=== PATIENT | male | born 2000 | race Two or more races ===

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

== ENCOUNTER 2018-02-16 17:49 | Emergency (ER) | payer MEDICAID ==
--- NOTE | 2018-02-16 18:32 | ER Document Report ---
ED Medical Screen (RME) - General Chief Complaint: Headache Stated Complaint: HEADACHE Time Seen by Provider: 02/16/18 18:19 Notes: 17-year-old male patient who has had headaches off and on for 3 or 4 months, now they are every day for the past 2 weeks. He reports headaches are all over. He has not taken anything for them because he does not want to take medicines. Mother reports that he sleeps all day and night every day and night for the past 3 weeks. He is not been eating, he has had no energy. She reports an 8 pound weight loss. I have greeted and performed a rapid initial assessment of this patient. A comprehensive ED assessment and evaluation of the patient, analysis of test results and completion of the medical decision making process will be conducted by additional ED providers. TRAVEL OUTSIDE OF THE [place] IN LAST 30 DAYS: No - Related Data Allergies/Adverse Reactions: No Known Allergies Allergy (Verified 02/16/18 17:51) Past Medical History - Social History Frequency of alcohol use: None Drug Abuse: None Renal/ Medical History: Denies: Hx Peritoneal Dialysis - Immunizations Immunizations up to date: Yes Hx Diphtheria, Pertussis, Tetanus Vaccination: Yes Physical Exam - Vital signs Vitals: Temp Pulse Resp BP Pulse Ox 98.4 F 64 14 115/70 98 02/16/18 18:03 02/16/18 18:03 02/16/18 18:03 02/16/18 18:03 02/16/18 18:03 Course - Vital Signs Vital signs: Temp Pulse Resp BP Pulse Ox 98.4 F 64 14 115/70 98 02/16/18 18:03 02/16/18 18:03 02/16/18 18:03 02/16/18 18:03 02/16/18 18:03 Doctor's Discharge - Discharge Referrals: HAILY LOMELI MD [Primary Care Provider] - Follow up as needed
[2018-02-16 19:26] LABS: ABSOLUTE BASOPHILS # (AUTO) 0.1 10^3/uL (0.0-0.2); ABSOLUTE EOSINOPHILS # (AUTO) 0.1 10^3/uL (0.0-0.6); ABSOLUTE LYMPHOCYTES (AUTO) 2.4 10^3/uL (0.5-4.7); ABSOLUTE MONOCYTES (AUTO) 0.5 10^3/uL (0.1-1.4); ABSOLUTE NEUT (AUTO) 3.4 10^3/uL (1.7-8.2); BASOPHILS % (AUTO) 1.2 % (0-2); EOSINOPHILS % (AUTO) 2.3 % (0-6); HEMATOCRIT 47.9 % (37.9-51.0); LYMPHOCYTES % (AUTO) 36.7 % (13-45); MEAN CORPUSCULAR HGB CONC 35.4 g/dL (32.0-36.0); MEAN CORPUSCULAR VOLUME 82 fl (80-97); MONOCYTES % (AUTO) 7.6 % (3-13); PLATELET COUNT 222 10^3/uL (150-450); RED BLOOD COUNT 5.86 10^6/uL (4.35-5.55); RED CELL DISTRIBUTION WIDTH 12.8 % (11.5-14.0); SEGMENTED NEUTROPHILS % (AUTO) 52.2 % (42-78); TOTAL CELLS COUNTED % (AUTO) 100 %; WHITE BLOOD COUNT 6.5 10^3/uL (4.0-10.5)
[2018-02-16 19:31] LABS: APPEARANCE,URINE CLEAR; BILIRUBIN,URINE NEGATIVE (NEGATIVE); COLOR,URINE YELLOW; GLUCOSE, URINE NEGATIVE (NEGATIVE); KETONES,URINE NEGATIVE (NEGATIVE); LEUKOCYTE ESTERASE,URINE NEGATIVE (NEGATIVE); NITRITE,URINE NEGATIVE (NEGATIVE); PROTEIN,URINE NEGATIVE (NEGATIVE); URINE SPECIFIC GRAVITY 1.015
[2018-02-16 19:40] LABS: URINE AMPHETAMINES SCREEN NEGATIVE; URINE BARBITURATES SCREEN NEGATIVE; URINE BENZODIAZEPINES SCREEN NEGATIVE; URINE COCAINE SCREEN NEGATIVE; URINE MARIJUANA (THC) SCREEN NEGATIVE; URINE METHADONE SCREEN NEGATIVE; URINE PHENCYCLIDINE SCREEN NEGATIVE
[2018-02-16 19:45] LABS: ALANINE AMINOTRANSFERASE 15 U/L (10-40); ALBUMIN 5.1 g/dL (3.7-5.6); ALKALINE PHOSPHATASE 68 U/L (65-260); ANION GAP 10 (5-19); ASPARTATE AMINO TRANSFERASE 20 U/L (10-45); BILIRUBIN,DIRECT 0.6 mg/dL (0.0-0.4); BILIRUBIN,TOTAL 1.1 mg/dL (0.2-1.3); BLOOD UREA NITROGEN 10 mg/dL (7-20); CALCIUM 10.2 mg/dL (8.4-10.2); CARBON DIOXIDE 28 mmol/L (22-30); CHLORIDE 104 mmol/L (98-107); GLUCOSE 88 mg/dL (75-110); POTASSIUM 4.9 mmol/L (3.6-5.0); SODIUM 141.8 mmol/L (137-145); TOTAL PROTEIN 8.5 g/dL (6.3-8.2)
--- NOTE | 2018-02-16 22:05 | ER Document Report ---
ED General - General Chief Complaint: Headache Stated Complaint: HEADACHE Time Seen by Provider: 02/16/18 18:19 Notes: Patient is a 17-year-old male without medical problems, no drug use, lives at home with his mother, does not currently work, presents with his mother for concerns of apathy, weight loss intermittent headaches, lightheadedness, refusal to eat. Symptoms have been ongoing for at least 1 month, gradual in onset and have been getting progressively worse. Nothing is been noted to improve or worsen the symptoms. No history of the same in the past. Patient states that he feels fine, does not believe he needs to be here. With the mother of the room he continues to deny any drug or alcohol abuse. Denies any specific symptoms, specifically denies headache or lightheadedness currently. States "I just feel off". He has not seen his general doctor regarding today's concerns. He has not had fever, constitutional symptoms, vomiting, diarrhea, abdominal pain, focal weakness or numbness, confusion. TRAVEL OUTSIDE OF THE [place] IN LAST 30 DAYS: No - Related Data Allergies/Adverse Reactions: No Known Allergies Allergy (Verified 02/16/18 17:51) Past Medical History - General Information source: Patient - Social History Smoking Status: Never Smoker Frequency of alcohol use: None Drug Abuse: None Lives with: Parents Family History: Reviewed & Not Pertinent Patient has suicidal ideation: No Patient has homicidal ideation: No Renal/ Medical History: Denies: Hx Peritoneal Dialysis - Immunizations Immunizations up to date: Yes Hx Diphtheria, Pertussis, Tetanus Vaccination: Yes Review of Systems - Review of Systems Notes: Constitutional: Negative for fever. HENT: Negative for sore throat. Eyes: Negative for visual changes. Cardiovascular: Negative for chest pain. Respiratory: Negative for shortness of breath. Gastrointestinal: Negative for abdominal pain, vomiting or diarrhea. Genitourinary: Negative for dysuria. Musculoskeletal: Negative for back pain. Skin: Negative for rash. Neurological: Positive for intermittent headaches 10 point ROS negative except as marked above and in HPI. Physical Exam - Vital signs Vitals: Temp Pulse Resp BP Pulse Ox 98.4 F 64 14 115/70 98 02/16/18 18:03 02/16/18 18:03 02/16/18 18:03 02/16/18 18:03 02/16/18 18:03 Interpretation: Normal Notes: PHYSICAL EXAMINATION: GENERAL: Somewhat cachectic, no acute distress HEAD: Atraumatic, normocephalic. EYES: Pupils equal round and reactive to light, extraocular movements intact, sclera anicteric, conjunctiva are normal. ENT: nares patent, oropharynx clear without exudates. Moderately dry mucous membranes. NECK: Normal range of motion, supple without lymphadenopathy LUNGS: Breath sounds clear to auscultation bilaterally and equal. No wheezes rales or rhonchi. HEART: Regular rate and rhythm without murmurs ABDOMEN: Soft, nontender, normoactive bowel sounds. No guarding, no rebound. No masses appreciated. EXTREMITIES: Normal range of motion, no pitting or edema. No cyanosis. NEUROLOGICAL: Face symmetric. Tongue protrudes midline. Extraocular motions intact. Pupils are 2 mm and equally reactive. Normal speech, normal gait. 5 out of 5 strength in both the distal and proximal upper and lower extremities bilaterally. Sensation is grossly intact throughout. Finger to nose testing normal. Pronator drift normal. PSYCH: Intermittently staring off, laughs and grins intermittently but then also appears quite depressed. Poor eye contact. SKIN: Warm, Dry, normal turgor, no rashes or lesions noted. Course - Re-evaluation Re-evalutation: 02/16/18 22:01 Patient presents complaining of intermittent headache and lightheadedness neither of which are present currently. Patient himself does not think he needs to be here today, came at the behest of his mother. In some of the patient effectively appears to be sitting around doing nothing all day, effectively eating perhaps once at most daily. His last meal was this morning he had a very small bowl of cereal and has not eaten since last night. He is somewhat emaciated on exam, BMI 17. He does not have a depressed mood or affect. Alert and oriented. No neurologic deficits. He denies any complaints at all the time of my assessment. His physical examination is completely unremarkable. Labs likewise unremarkable. No evidence of undiagnosed diabetes , hyper or hypothyroidism. Drug screen negative and his clinical history is not consistent with any specific substance abuse. I do have a concern for possible undiagnosed depression, I have offered that the patient could remain in the emergency room and speak with behavioral health in the morning which he and his mother declines any rather follow-up with a primary. I do not suspect any acute life-threatening etiology of the patient's presentation today as the duration of his symptoms exceeds over 1 month making an acute encephalitis or meningitis or other occult infection extraordinarily unlikely. Likewise I do not suspect a syndrome such as Guyon Grubbs, transverse myelitis, multiple sclerosis. Patient denies any suicidal homicidal ideation. I have encouraged regular activity, getting the patient on the house more often, close outpatient follow-up. At this time will discharge with return precautions and follow-up recommendations. Verbal discharge instructions given a the bedside and opportunity for questions given. Medication warnings reviewed. Patient is in agreement with this plan and has verbalized understanding of return precautions and the need for primary care follow-up in the next 24-72 hours. - Vital Signs Vital signs: Temp Pulse Resp BP Pulse Ox 98.4 F 64 14 115/70 98 02/16/18 18:03 02/16/18 18:03 02/16/18 18:03 02/16/18 18:03 02/16/18 18:03 - Laboratory Result Diagrams: 02/16/18 19:09 02/16/18 19:09 Laboratory results interpreted by me: 02/16/18 02/16/18 02/16/18 19:09 19:09 19:09 RBC 5.86 H Direct Bilirubin 0.6 H Total Protein 8.5 H Urine Urobilinogen 4.0 H Discharge - Discharge Clinical Impression: Anorexia, Demoralization & apathy Condition: Good Disposition: HOME, SELF-CARE Additional Instructions: Your labs, exam and vitals are normal today. I am concerned that you are not eating, that you are losing weight, and that you appear quite apathetic toward your life at this point. I am concerned about the possibility of undiagnosed depression. I think it is very important that she follow closely her primary care doctor, consider referral to a psychiatrist. Your labs today have been included with your paperwork. Please return to the emergency room immediately if you experience any concerning symptoms including high fevers, severe headache , chest pain, difficulty breathing, abdominal pain, slurred speech, numbness or weakness in your arms or legs, or any other symptom that concerns you. Referrals: HAILY LOMELI MD [Primary Care Provider] - Follow up as needed
[2018-02-16 22:22] VITALS: BP 121/86
== END 2018-02-16 22:23 | disposition home or self-care (01) ==
LOC: ER 17:49
DX: R51 Headache (principal); R42 Dizziness and giddiness; R63.0 Anorexia; R45.3 Demoralization and apathy; Z68.1 Body mass index [BMI] 19.9 or less, adult
CPT/HCPCS: 36415; 80053; 80307; 81001; 83735; 84443; 85025; 99284

== ENCOUNTER 2018-03-06 21:23 | Emergency (ER) | payer MEDICAID ==
--- NOTE | 2018-03-06 23:28 | ER Document Report ---
ED General - General TRAVEL OUTSIDE OF THE [place] IN LAST 30 DAYS: No <ALINA BLACK - Last Filed: 03/07/18 03:59> <ABRAHAM SCOTT - Last Filed: 03/08/18 13:34> <HAILY BARRIOS - Last Filed: 03/08/18 14:45> - General Chief Complaint: Psych Problem Stated Complaint: MENTAL HEALTH Time Seen by Provider: 03/06/18 22:34 Notes: Patient is a 17-year-old male who presents with complaint of mother's" he has not been himself". She says off and on for about 3 months he seemed at times depressed. Tonight he gets point where he would not talk and was just crying and unconsolable and she did not know why and therefore brought to the ER. The patient himself will not talk to me. He is not violent. When I asked him if he is suicidal he will just shrug his shoulders. If I asked him if he is depressed he again just shrugs his shoulders. He will not answer any of my questions at this time. (ALINA BLACK) - Related Data Allergies/Adverse Reactions: No Known Allergies Allergy (Verified 03/06/18 21:25) Past Medical History - Social History Smoking Status: Former Smoker Frequency of alcohol use: None Drug Abuse: None Family History: Reviewed & Not Pertinent Patient has suicidal ideation: No Patient has homicidal ideation: No Renal/ Medical History: Denies: Hx Peritoneal Dialysis - Immunizations Immunizations up to date: Yes Hx Diphtheria, Pertussis, Tetanus Vaccination: Yes <ALINA BLACK - Last Filed: 03/07/18 03:59> Review of Systems - Review of Systems -: Yes ROS unobtainable due to patient's medical condition - Patient will not communicate <ALINA BLACK - Last Filed: 03/07/18 03:59> Physical Exam <ALINA BLACK - Last Filed: 03/07/18 03:59> <ABRAHAM SCOTT - Last Filed: 03/08/18 13:34> <HAILY BARRIOS - Last Filed: 03/08/18 14:45> - Vital signs Vitals: Temp Pulse Resp BP Pulse Ox 97.8 F 85 20 125/84 99 03/06/18 21:29 03/06/18 21:29 03/06/18 21:29 03/06/18 21:29 03/06/18 21:29 - Notes Notes: General Appearance: Well nourished, alert, cooperative, no acute distress, no obvious discomfort. Vitals: reviewed, See vital signs table. Eyes: PERRL, EOMI, Conjuctiva clear Mouth: No decreasd moisture Throat: No tonsillar inflammation, No airway obstruction, No lymphadenopathy Neck: Supple, no neck tenderness, No thyromegaly Lungs: No wheezing, No rales, No rhonci, No accessory muscle use, good air exchange bilaterally. Heart: Normal rate, Regular rythm, No murmur, no rub Abdomen: Normal BS, soft, No rigidity, No abdominal tenderness, No guarding, no rebound, no abdominal masses, no organomegaly Extremities: no edema. Neuro: Flat Affect. Symmetric facial movement. Is able move all extremities on his own without difficulty. Psychiatric: Patient will not answer whether not he is suicidal or depressed. On exam patient is obviously been crying and very flat affect and will not answer questions and appears very emotionally upset. (ALINA BLACK) Course - Laboratory Result Diagrams: 03/07/18 00:30 03/07/18 00:30 <ALINA BLACK - Last Filed: 03/07/18 03:59> - Laboratory Result Diagrams: 03/07/18 00:30 03/07/18 00:30 <ABRAHAM SCOTT - Last Filed: 03/08/18 13:34> - Laboratory Result Diagrams: 03/07/18 00:30 03/07/18 00:30 <HAILY BARRIOS - Last Filed: 03/08/18 14:45> - Re-evaluation Re-evalutation: 03/07/18 03:59 Patient eventually said he want to talk to me. I went back into the room to talk to him and patient said he want to go home. I asked him that he would have to explain to me why he has been crying when he will not talk. Patient initially refused to talk to me about this after asked him that and then his mother said "just tell the doctor what you just told me". Patient then said "I have just been bored". Informed patient that being bored she did not cause him to have spontaneous episodes of crying and to be his so flat affect and not willing to talk to anybody. I informed him if he is having severe depression associate with this and it would make sense. Patient tells me now he is not suicidal however he continues to not make eye contact and says he just wants to leave. My concern is that the patient is a young male who seems very emotionally upset and will not make good eye contact and will not answer questions about his emotional state. These are all warning signs that the patient is most likely depressed and potentially could be suicidal. Therefore with the patient a 24-hour hold until mental health could evaluate him this morning because patient continues to not be willing to answer questions to explain the way he is feeling cord to convince me otherwise that he is not potentially suicidal. Dictation of this chart was performed using voice recognition software; therefore, there may be some unintended grammatical errors. 03/07/18 04:01 (ALINA BLACK) - Vital Signs Vital signs: Temp Pulse Resp BP Pulse Ox 97.7 F 96 H 16 137/98 H 99 03/08/18 04:00 03/08/18 04:00 03/08/18 04:00 03/08/18 04:00 03/08/18 04:00 - Laboratory Laboratory results interpreted by me: 03/07/18 03/07/18 03/07/18 00:30 00:30 08:20 WBC 11.0 H RBC 6.19 H Hgb 17.6 H Hct 51.3 H Glucose 114 H Calcium 10.6 H Total Protein 9.2 H Urine Urobilinogen 4.0 H Ur Leukocyte Esterase TRACE H Salicylates < 1.0 L Acetaminophen < 10 L - EKG Interpretation by Me Additional EKG results interpreted by me: 03/07/18 00:53 EKG is reviewed and interpreted by me. EKG shows sinus tachycardia with rate of [address] segment elevation or depression. No ischemic T wave inversions. MT interval, QRS duration, QTc intervals are within normal range. Old EKG for comparison is from October 04, 2017. (ALINA BLACK) Discharge <ALINA BLACK - Last Filed: 03/07/18 03:59> <ABRAHAM SCOTT - Last Filed: 03/08/18 13:34> <HAILY BARRIOS - Last Filed: 03/08/18 14:45> - Discharge Clinical Impression: Depression Qualifiers: Depression Type: unspecified Qualified Code(s): F32.9 - Major depressive disorder, single episode, unspecified Altered mental status, unspecified Qualifiers: Altered mental status type: unspecified Qualified Code(s): R41.82 - Altered mental status, unspecified Condition: Stable Disposition: HOME, SELF-CARE Additional Instructions: You have been evaluated by both medical and behavioral health teams and have been deemed appropriate for discharge. You are recommended to follow-up with your outpatient mental health provider, [facility], in 3-5 days for continued outpatient services. Altered Mental Status An altered mental status is a change in the normal functioning of the brain. This alteration of function can range from minor decreased brain function with some forgetfulness and confusion to complete loss of consciousness and coma. There are many possible causes of an altered mental status and include brain injuries such as trauma or strokes, problems with oxygen supply to the brain, fever and infections of the brain and/or elsewhere in the body, metabolic abnormalities such as low or high blood sugar, overdoses or excessive medication ingestion, and mental and psychiatric illnesses. Sometimes the altered mental status resolves and a definite cause is not determined. If a cause for your altered mental status was found, it has likely been corrected. Your evaluation has not shown any condition that requires that you be admitted to the hospital. It is believed that you are safe to leave and return to your home. If you have a return of your symptoms, you should return for re-evaluation. NORMAL EXAM AND WORKUP: At this time, your examination and workup show no significant abnormality. No significant abnormal physical findings were noted. All laboratory, EKG, and imaging (x-ray, CT scans, ultrasound) studies that were ordered show no significant abnormality. Although your examination and all studies that were ordered showed no significant abnormal finding, there are no examinations and no studies that are 100% accurate. There is always the possibility that some abnormality could exist and not be detected with physical examination or within the limits and capabilities of laboratory and other studies. You should return or follow up as you were instructed on your visit today for further evaluation if your symptoms do not resolve. Prescriptions: Chlorpromazine HCl [Thorazine 50 mg Tablet] 50 mg PO QHS #4 tablet Referrals: HAILY LOMELI MD [Primary Care Provider] - Follow up as needed Sara Umaña [Outside] - Follow up in 3-5 days [facility] [Outside] - Follow up as needed
[2018-03-07 00:43] LABS: ABSOLUTE BASOPHILS # (AUTO) 0.1 10^3/uL (0.0-0.2); ABSOLUTE LYMPHOCYTES (AUTO) 2.7 10^3/uL (0.5-4.7); ABSOLUTE MONOCYTES (AUTO) 0.8 10^3/uL (0.1-1.4); ABSOLUTE NEUT (AUTO) 7.5 10^3/uL (1.7-8.2); BASOPHILS % (AUTO) 0.7 % (0-2); EOSINOPHILS % (AUTO) 0.4 % (0-6); HEMATOCRIT 51.3 % (37.9-51.0); HEMOGLOBIN 17.6 g/dL (13.5-17.0); LYMPHOCYTES % (AUTO) 24.3 % (13-45); MEAN CORPUSCULAR HEMOGLOBIN 28.4 pg (27.0-33.4); MEAN CORPUSCULAR HGB CONC 34.3 g/dL (32.0-36.0); MEAN CORPUSCULAR VOLUME 83 fl (80-97); MONOCYTES % (AUTO) 6.9 % (3-13); PLATELET COUNT 288 10^3/uL (150-450); RED BLOOD COUNT 6.19 10^6/uL (4.35-5.55); RED CELL DISTRIBUTION WIDTH 13.4 % (11.5-14.0); SEGMENTED NEUTROPHILS % (AUTO) 67.7 % (42-78); TOTAL CELLS COUNTED % (AUTO) 100 %
[2018-03-07 00:56] LABS: ALANINE AMINOTRANSFERASE 11 U/L (10-40); ALBUMIN 5.6 g/dL (3.7-5.6); ALKALINE PHOSPHATASE 81 U/L (65-260); ANION GAP 17 (5-19); ASPARTATE AMINO TRANSFERASE 26 U/L (10-45); BILIRUBIN,DIRECT 0.4 mg/dL (0.0-0.4); BILIRUBIN,TOTAL 1.1 mg/dL (0.2-1.3); BLOOD UREA NITROGEN 9 mg/dL (7-20); CALCIUM 10.6 mg/dL (8.4-10.2); CARBON DIOXIDE 23 mmol/L (22-30); CHLORIDE 102 mmol/L (98-107); GLUCOSE 114 mg/dL (75-110); POTASSIUM 4.5 mmol/L (3.6-5.0); SODIUM 141.6 mmol/L (137-145); TOTAL PROTEIN 9.2 g/dL (6.3-8.2)
[2018-03-07 01:00] LABS: ACETAMINOPHEN < 10 ug/mL (10-30); ALCOHOL < 10 mg/dL (NONE DETECTED); SALICYLATE < 1.0 mg/dL (2.0-20.0)
--- NOTE | 2018-03-07 08:23 | EKG REPORT ---
SEVERITY:- ABNORMAL ECG - SINUS TACHYCARDIA RIGHT ATRIAL ABNORMALITY BORDERLINE T ABNORMALITIES, INFERIOR LEADS : Confirmed by: She George 07-Mar-2018 08:23:17
[2018-03-07 08:51] LABS: APPEARANCE,URINE SLIGHTLY-CLOUDY; BILIRUBIN,URINE NEGATIVE (NEGATIVE); COLOR,URINE YELLOW; GLUCOSE, URINE NEGATIVE (NEGATIVE); KETONES,URINE NEGATIVE (NEGATIVE); LEUKOCYTE ESTERASE,URINE TRACE (NEGATIVE); NITRITE,URINE NEGATIVE (NEGATIVE); PROTEIN,URINE NEGATIVE (NEGATIVE)
[2018-03-07 09:02] LABS: URINE AMPHETAMINES SCREEN NEGATIVE; URINE BARBITURATES SCREEN NEGATIVE; URINE BENZODIAZEPINES SCREEN NEGATIVE; URINE COCAINE SCREEN NEGATIVE; URINE MARIJUANA (THC) SCREEN NEGATIVE; URINE METHADONE SCREEN NEGATIVE; URINE PHENCYCLIDINE SCREEN NEGATIVE
--- NOTE | 2018-03-07 10:00 | ER Document Report ---
Doctor's Note Notes: 03/07/18 09:58 This is a 17-year-old man who was brought in to the emergency room with episodes of withdrawing socially, episodes of crying and "not being himself". I have seen and examined the patient. I have reviewed the labs and the vital signs. I reviewed the previous reports, spoken to the psychology nurse and reviewed patient's clinical encounter from February 16. His symptoms have been going on for quite a while. As per the mother, patient is appropriate at times and then will have episodes where he appears depressed, is not interactive and withdraws significantly, eats very little. Patient is not very cooperative with the exam, he speaks very little to me. The exam is limited. However, his extraocular muscles are intact, cranial nerves appear to be intact and his motor exam is nonfocal. His affect is severely blunted. He exhibits no obvious hallucinations. He does not appear delirious. He does not appear in any distress. He complains of no headache. There is been no fever. Labs show a white count on the high end of normal and his electrolytes are essentially stable. His urine shows some white cells without any bacteria (given his level of cooperation during my exam, I suspicion is that this is not a midstream sample). He denies any dysuria or abdominal pain. I will add an RPR and repeat the urine and put him in for head CT. Psychiatry is continuing to follow. 03/07/18 10:04
--- NOTE | 2018-03-07 10:43 | RADIOLOGY REPORT (SQ) ---
EXAM DESCRIPTION: CHEST 2 VIEWS COMPLETED DATE/TIME: 03/07/2018 10:26 am REASON FOR STUDY: cough COMPARISON: 12/04/2017 EXAM PARAMETERS: NUMBER OF VIEWS: two views TECHNIQUE: Digital Frontal and Lateral radiographic views of the chest acquired. RADIATION DOSE: NA LIMITATIONS: none FINDINGS: LUNGS AND PLEURA: No opacities, masses or pneumothorax. No pleural effusion. MEDIASTINUM AND HILAR STRUCTURES: No masses or contour abnormalities. HEART AND VASCULAR STRUCTURES: Heart normal size. No evidence for failure. BONES: No acute findings. HARDWARE: None in the chest. OTHER: No other significant finding. IMPRESSION: NO ACUTE RADIOGRAPHIC FINDING IN THE CHEST. TECHNICAL DOCUMENTATION: JOB ID: [id number] [employer]- All Rights Reserved Reading location - IP/workstation name: [email or web address]
--- NOTE | 2018-03-07 10:44 | RADIOLOGY REPORT (SQ) ---
EXAM DESCRIPTION: CT HEAD WITHOUT COMPLETED DATE/TIME: 03/07/2018 10:20 am REASON FOR STUDY: altered mental status COMPARISON: None. TECHNIQUE: Axial images acquired through the brain without intravenous contrast. Images reviewed wi th bone, brain and subdural windows. Additional sagittal and coronal reconstructions were generated. Images stored on PACS. All CT scanners at this facility use dose modulation, iterative reconstruction, and/or weight based d osing when appropriate to reduce radiation dose to as low as reasonably achievable (ALARA). [facility]: Dose Right [facility]: CareDose [facility]: Dose Right [facility]: Teradose 4D [facility]: [employer] RADIATION DOSE: CT Rad equipment meets quality standard of care and radiation dose reduction techniq ues were employed. CTDIvol: 53.2 mGy. DLP: 1124 mGy-cm. mGy. LIMITATIONS: None. FINDINGS: VENTRICLES: Normal size and contour. CEREBRUM: No masses. No hemorrhage. No midline shift. No evidence for acute infarction. Normal gra y/white matter differentiation. No areas of low density in the white matter. CEREBELLUM: No masses. No hemorrhage. No alteration of density. No evidence for acute infarction. EXTRAAXIAL SPACES: No fluid collections. No masses. ORBITS AND GLOBE: No intra- or extraconal masses. Normal contour of globe without masses. CALVARIUM: No fracture. PARANASAL SINUSES: No fluid or mucosal thickening. SOFT TISSUES: No mass or hematoma. OTHER: No other significant finding. IMPRESSION: NORMAL BRAIN CT WITHOUT CONTRAST. EVIDENCE OF ACUTE STROKE: NO. COMMENT: Quality ID # [id number]: Final reports with documentation of one or more dose reduction techniques (e.g., Automated exposure control, adjustment of the mA and/or kV according to patient size, use of iterative reconstruction technique) TECHNICAL DOCUMENTATION: JOB ID: [id number] [employer]- All Rights Reserved Reading location - IP/workstation name: OPERATING ROOM SURGICAL [email or web address]
--- NOTE | 2018-03-07 15:19 | PSYCHOLOGICAL NOTE ---
Psych Note - Psych Note Psych Note: Reason for Consult: odd presentation Patient is a 17-year-old male who presents with complaint of mother's "he has not been himself". She says off and on for about 3 months he seemed at times depressed. Clinician attempted to engage patient. Patient is noted to be staring at clinician and says little. After multiple attempts resulting in the patient refusing to engage, the patient does disclose that he is currently not in school or working. Patient disclosed being graduated however at times seems confused. Patient has very flat affect seems to be staring right through clinician and does little to participate in conversations or his environment. Patient's mom reports that the patient is used to hang out all the time with friends however was getting in trouble because he was with the wrong crowds so stopped taking out with them. She reports that he is just been bored. She continued to report that he did get excited when he got offered a job yesterday. She discloses that they went to [facility] and the patient was asked questions for an hour which point they stated did the patient should follow-up with neurology to rule out medical. Clinician notes Dr. Loo went in to speak with the patient briefly to see if he would engage. Patient does engage slightly more and confirms he has smoked some marijuana in the past. Eze Ortega noted the patient appeared to be very uncomfortable with any physical contact, shying way when trying to determine if the patient felt warm. Patient's toxicology screening are all negative. Patient's head CT indicates no findings Chart review conducted Patient was seen on 02/16/2018 attending physician noted concerns of apathy, weight loss intermittent headaches, lightheadedness, refusal to eat. Symptoms have been ongoing for at least 1 month, gradual in onset and have been getting progressively worse. 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 Patient has odd presentation, flat affect and refuses to engage. Patient makes extreme eye contact, no or little blinking and seeming to looking right through clinician. Patient admits to smoking THC however there is nothing in toxicology to indicate recent use. Onset was about 3 months ago with concerns of apathy, weight loss and refusal to eat. Patient is a danger to himself at this time. Patient will be re-evaluated. Dr. Delarosa was consulted on the care and management of this patient.
[2018-03-07] MEDS ORDERED: BENZTROPINE MESYLATE INJ 2 MG/2 ML AMPULE IM SCH (16:15)
[2018-03-07] MEDS ORDERED: CHLORPROMAZINE HCL INJ 25 MG/1 ML AMPULE IM SCH (18:00)
--- NOTE | 2018-03-08 09:51 | ER Document Report ---
Doctor's Note Notes: 03/08/18 09:48 Rounds: Chart reviewed and patient interviewed. Patient has been here for 2 days while being investigated for sad?, Depressed?, Or otherwise behavior, which is apparently new for this patient. He has no history of psychiatric disorders. Does not take any medications. Says he lives with his mother and her boyfriend and gets along with both of them. Says he does not use any drugs. Seems to be withdrawn speaks in a very quiet voice. Lab studies showed a white count of 11,000 and a hemoglobin of 17.6. No evidence of any infections anywhere. All other labs essentially normal. Vital signs are all within normal limits. Patient appears to be medically stable for transfer or discharge. Herlinda Rodriguez MD
[2018-03-08] MEDS ORDERED: CHLORPROMAZINE HCL 50 MG TABLET PO SCH (10:00)
[2018-03-08] MEDS ORDERED: BENZTROPINE MESYLATE 1 MG TABLET PO SCH (10:00)
--- NOTE | 2018-03-08 13:50 | PSYCHOLOGICAL NOTE ---
Psych Note - Psych Note Date seen by psych provider: 03/08/18 Time seen by psych provider: 07:05 Psych Note: Reason for Consult: odd presentation Patient is a 17-year-old male who presents with complaint of mother's "he has not been himself". She says off and on for about 3 months he seemed at times depressed. Check-in conducted with patient Patient is now communicating with clinician denies wanting to harm himself. He reports he just would like to go home to be able to sleep. He states that he has not smoked anything (marijuana) in a "minute "however confirms that he had in the past. He denies feeling completely detached however admits he was previous; currently he reports feeling detached "only a little bit." Clinician notes the patient was given some Thorazine this morning and appeared to be fighting the urge to sleep. Patient is noted to have congruent affect overall and is communicating effectively with clinician to include smiling briefly. Patient's mother really wants to take the patient home and feels that she can keep him safe and ensure that he follows mental health recommendations. Patient agrees with this plan and confirms that he will communicate with his mom if he starts to feel detached again. 298.9 (F29) Unspecified psychosis Impression/plan: Patient is recommended for rescind of IVC and is cleared from acute psychiatric services. Patient's presentation has significantly improved; he is communicating and has congruent affect to his mood. Patient is noted to have some times of flat affect; however, he was given medication and appears to be trying to fight the urge to sleep. He denies thoughts of wanting to harm himself and confirms he will keep communication with his mother to ensure that if he starts to feel detached he will tell her. Patient's mother requests the patient to be released into her care. She feels she can ensure he follows with recommendations and agrees to have him return if symptoms return. She reports she has already set up a doctor appointment and will be following up with [facility] for continued mental health outpatient services. Dr. Delarosa was consulted on the care and management of this patient.
[2018-03-08 15:55] VITALS: BP 131/87
== END 2018-03-08 14:55 | disposition home or self-care (01) ==
LOC: ER 21:23
DX: F32.9 Major depressive disorder, single episode, unspecified (principal); F29 Unspecified psychosis not due to a substance or known physiological condition; R41.82 Altered mental status, unspecified
CPT/HCPCS: 93005; 99285; 96372; 36415; 80307 ×4; 85025; 86592; 80053; 81001; 93010; J3490 ×2; J0515; J3230

== ENCOUNTER 2018-03-09 18:08 | Emergency (ER) | payer MEDICAID ==
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
[2018-03-09 18:45] LABS: ABSOLUTE MONOCYTES (AUTO) 0.6 10^3/uL (0.1-1.4); ABSOLUTE NEUT (AUTO) 7.6 10^3/uL (1.7-8.2); BASOPHILS % (AUTO) 0.4 % (0-2); HEMATOCRIT 47.5 % (37.9-51.0); HEMOGLOBIN 16.8 g/dL (13.5-17.0); LYMPHOCYTES % (AUTO) 10.5 % (13-45); MEAN CORPUSCULAR HEMOGLOBIN 28.8 pg (27.0-33.4); MEAN CORPUSCULAR HGB CONC 35.3 g/dL (32.0-36.0); MEAN CORPUSCULAR VOLUME 82 fl (80-97); MONOCYTES % (AUTO) 6.8 % (3-13); PLATELET COUNT 218 10^3/uL (150-450); RED BLOOD COUNT 5.81 10^6/uL (4.35-5.55); RED CELL DISTRIBUTION WIDTH 13.5 % (11.5-14.0); SEGMENTED NEUTROPHILS % (AUTO) 82.3 % (42-78); TOTAL CELLS COUNTED % (AUTO) 100 %; WHITE BLOOD COUNT 9.3 10^3/uL (4.0-10.5)
[2018-03-09 19:05] LABS: ALANINE AMINOTRANSFERASE 17 U/L (10-40); ALBUMIN 5.2 g/dL (3.7-5.6); ALKALINE PHOSPHATASE 75 U/L (65-260); ASPARTATE AMINO TRANSFERASE 39 U/L (10-45); BILIRUBIN,DIRECT 0.3 mg/dL (0.0-0.4); BILIRUBIN,TOTAL 1.4 mg/dL (0.2-1.3); BLOOD UREA NITROGEN 17 mg/dL (7-20); CALCIUM 10.6 mg/dL (8.4-10.2); GLUCOSE 120 mg/dL (75-110); POTASSIUM 4.3 mmol/L (3.6-5.0); TOTAL PROTEIN 8.5 g/dL (6.3-8.2)
[2018-03-09 19:06] LABS: ACETAMINOPHEN < 10 ug/mL (10-30); ALCOHOL < 10 mg/dL (NONE DETECTED); SALICYLATE < 1.0 mg/dL (2.0-20.0)
[2018-03-09 19:47] LABS: ANION GAP 20 (5-19); CARBON DIOXIDE 25 mmol/L (22-30); CHLORIDE 101 mmol/L (98-107); SODIUM 146.2 mmol/L (137-145)
--- NOTE | 2018-03-09 21:47 | EKG REPORT ---
SEVERITY:- ABNORMAL ECG - SINUS TACHYCARDIA PROBABLE LEFT VENTRICULAR HYPERTROPHY BORDERLINE T ABNORMALITIES, INFERIOR LEADS ANTERIOR ST ELEVATION, PROBABLY DUE TO LVH : Confirmed by: She George 09-Mar-2018 21:46:59
[2018-03-09] MEDS ORDERED: HALOPERIDOL 5 MG TABLET PO ONE (22:49)
[2018-03-09] MEDS ORDERED: HALOPERIDOL LACTATE INJ 5 MG/1 ML VIAL IM ONE (22:52)
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
[2018-03-10 10:26] LABS: APPEARANCE,URINE SLIGHTLY-CLOUDY; BILIRUBIN,URINE NEGATIVE (NEGATIVE); COLOR,URINE YELLOW; GLUCOSE, URINE NEGATIVE (NEGATIVE); KETONES,URINE 80 mg/dL (NEGATIVE); LEUKOCYTE ESTERASE,URINE NEGATIVE (NEGATIVE); NITRITE,URINE NEGATIVE (NEGATIVE); PROTEIN,URINE 30 mg/dL (NEGATIVE); URINE SPECIFIC GRAVITY 1.021
[2018-03-10 10:47] LABS: URINE AMPHETAMINES SCREEN NEGATIVE; URINE BARBITURATES SCREEN NEGATIVE; URINE BENZODIAZEPINES SCREEN NEGATIVE; URINE COCAINE SCREEN NEGATIVE; URINE MARIJUANA (THC) SCREEN NEGATIVE; URINE METHADONE SCREEN NEGATIVE; URINE PHENCYCLIDINE SCREEN NEGATIVE
[2018-03-10] MEDS: BENZTROPINE MESYLATE 1 MG TABLET PO SCH (12:56)
[2018-03-10] MEDS: CHLORPROMAZINE HCL 50 MG TABLET PO SCH ×2 (12:56→18:19)
--- NOTE | 2018-03-11 09:39 | ER Document Report ---
Doctor's Note Notes: 03/11/18 09:38 Patient seen and evaluated. He appears mildly anxious. He is cooperative and answering questions. Patient states he would like to go home because he "has things to do". He would not elaborate on what his plans were. He denied any overnight issues or current complaints. Awaiting placement by mental health.
[2018-03-11] MEDS: CHLORPROMAZINE HCL 50 MG TABLET PO SCH ×2 (09:45→17:56)
[2018-03-11] MEDS: BENZTROPINE MESYLATE 1 MG TABLET PO SCH (09:45)
[2018-03-12] MEDS: BENZTROPINE MESYLATE 1 MG TABLET PO SCH (09:30)
[2018-03-12] MEDS: CHLORPROMAZINE HCL 50 MG TABLET PO SCH (09:30)
--- NOTE | 2018-03-12 09:49 | ER Document Report ---
Doctor's Note Notes: 03/12/18 09:48 Patient seen and evaluated. He is resting comfortably in the cot. He is in no acute distress. He appears much more alert and conversational than yesterday. He denies any current thoughts of suicidal or homicidal ideation. He does not want to hurt any of his family members. He is in agreement with plans to follow with counseling tomorrow on an outpatient basis. Mother feels comfortable with him being discharged to her house. Awaiting final psych recommendations for disposition, likely discharge home today for further outpatient management.
[2018-03-12 10:06] VITALS: BP 114/77
== END 2018-03-12 10:06 | disposition home or self-care (01) ==
LOC: ER 18:08
DX: F91.1 Conduct disorder, childhood-onset type (principal); R45.1 Restlessness and agitation; F29 Unspecified psychosis not due to a substance or known physiological condition
CPT/HCPCS: 93005; 99285; 36415; 80307 ×4; 85025; 80053; 81001; 93010; J3490 ×7

== ENCOUNTER 2018-03-12 10:40 | Emergency (ER) | payer MEDICAID ==
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
[2018-03-12] MEDS ORDERED: CHLORPROMAZINE HCL 50 MG TABLET PO ONE (12:03)
[2018-03-12] MEDS: CHLORPROMAZINE HCL 50 MG TABLET PO SCH (18:27)
[2018-03-13] MEDS: CHLORPROMAZINE HCL 50 MG TABLET PO SCH ×2 (09:06→17:57)
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
[2018-03-13 16:41] LABS: URINE AMPHETAMINES SCREEN NEGATIVE; URINE BARBITURATES SCREEN NEGATIVE; URINE BENZODIAZEPINES SCREEN NEGATIVE; URINE COCAINE SCREEN NEGATIVE; URINE MARIJUANA (THC) SCREEN NEGATIVE; URINE METHADONE SCREEN NEGATIVE; URINE PHENCYCLIDINE SCREEN NEGATIVE
[2018-03-14] MEDS: CHLORPROMAZINE HCL 50 MG TABLET PO SCH ×2 (09:43→17:18)
--- NOTE | 2018-03-14 10:14 | ER Document Report ---
Doctor's Note Notes: 03/14/18 10:13 Rounds: Chart reviewed and patient interviewed, although limited because patient is not very cooperative. This is his third visit to this emergency department this week. Patient does not volunteer information or answers easily. Vital signs are all normal. Only a drug screen was done on this visit and its negative. Patient appears to be medically stable for transfer or discharge. Herlinda Rodriguez MD
[2018-03-14] MEDS ORDERED: ASPIRIN 325 MG TABLET PO ONE (16:05)
[2018-03-14] MEDS: BENZTROPINE MESYLATE 1 MG TABLET PO SCH (16:11)
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
--- NOTE | 2018-03-15 09:25 | ER Document Report ---
Doctor's Note Notes: Rounds: Chart reviewed and patient sleeping so not awakened nor interviewed. Vital signs of all been normal. Limited lab studies on this admission were all essentially normal. During the previous week, patient has had labs for everything that is customary for psychiatric evaluation patient. Everything is been essentially normal. Patient appears to be medically stable for transfer or discharge. Herlinda Rodriguez MD
[2018-03-15] MEDS: CHLORPROMAZINE HCL 50 MG TABLET PO SCH ×2 (09:52→17:26)
[2018-03-15] MEDS: BENZTROPINE MESYLATE 1 MG TABLET PO SCH (09:52)
--- NOTE | 2018-03-15 12:53 | PSYCHOLOGICAL NOTE ---
Psych Note - Psych Note Date seen by psych provider: 03/15/18 Time seen by psych provider: 08:00 Psych Note: Reason for Consult: aggression Check-in conducted with patient Patient is alert and orientated. He presents with euthymic mood and congruent affect. Patient effectively engages in organized and linear conversation. He discusses wanting to get more time outside, in the fresh air, as an identified coping skill. He continued to disclose that he does not want to hurt himself or others and cares very much for his mother. He denies any thoughts of wanting to harm her. He confirms he understands that while he is been at [facility] ED he has been in complete control of his behaviors. Clinician explained to the patient that the patient should be able to control his behaviors both in and out of the hospital and he is responsible for his behaviors. Patient states he understands. Clinician spoke with patient's mother to discuss discharge plan. 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 Medication recommendations per [facility]'s contracted psychiatrist Dr. 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 Patient's presentation has significantly improved; he is communicating and has congruent affect to his mood. He denies thoughts of wanting to harm himself or others (including his mother). Patient states he understands that he has been controlling his behavior while at [facility] with no difficulties which means that he is responsible for his behaviors both in and out of the hospital. Patient engaged in problem solving, identifying wanting to get more time outside in the fresh air to feel better. At this time, the patient is recommended to follow up with outpatient mental health services tomorrow at [facility]. Patient is also highly encouraged to not smoke spice anymore. Dr. Delarosa was consulted on the care and management of this patient.
[2018-03-15 17:44] VITALS: BP 119/89
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
== END 2018-03-15 17:46 | disposition home or self-care (01) ==
LOC: ER 10:40
DX: F29 Unspecified psychosis not due to a substance or known physiological condition (principal); R45.6 Violent behavior; F32.9 Major depressive disorder, single episode, unspecified; R45.1 Restlessness and agitation; Z75.1 Person awaiting admission to adequate facility elsewhere
CPT/HCPCS: 99284; 80307; J3490 ×6

== ENCOUNTER 2019-03-15 09:48 | Emergency (ER) | payer MEDICAID, OTHER ==
[2019-03-15 09:55] VITALS: BP 125/74
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
[2019-03-15 11:01] LABS: ABSOLUTE BASOPHILS # (AUTO) 0.1 10^3/uL (0.0-0.2); ABSOLUTE EOSINOPHILS # (AUTO) 0.1 10^3/uL (0.0-0.6); ABSOLUTE LYMPHOCYTES (AUTO) 1.7 10^3/uL (0.5-4.7); ABSOLUTE MONOCYTES (AUTO) 0.4 10^3/uL (0.1-1.4); ABSOLUTE NEUT (AUTO) 3.9 10^3/uL (1.7-8.2); BASOPHILS % (AUTO) 0.9 % (0-2); EOSINOPHILS % (AUTO) 1.7 % (0-6); HEMATOCRIT 41.9 % (37.9-51.0); HEMOGLOBIN 14.6 g/dL (13.5-17.0); LYMPHOCYTES % (AUTO) 27.8 % (13-45); MEAN CORPUSCULAR HEMOGLOBIN 28.9 pg (27.0-33.4); MEAN CORPUSCULAR HGB CONC 34.8 g/dL (32.0-36.0); MEAN CORPUSCULAR VOLUME 83 fl (80-97); MONOCYTES % (AUTO) 6.6 % (3-13); PLATELET COUNT 203 10^3/uL (150-450); RED BLOOD COUNT 5.03 10^6/uL (4.35-5.55); RED CELL DISTRIBUTION WIDTH 14.6 % (11.5-14.0); TOTAL CELLS COUNTED % (AUTO) 100 %; WHITE BLOOD COUNT 6.2 10^3/uL (4.0-10.5)
[2019-03-15 11:02] LABS: APPEARANCE,URINE SLIGHTLY-CLOUDY; BILIRUBIN,URINE NEGATIVE (NEGATIVE); COLOR,URINE YELLOW; GLUCOSE, URINE NEGATIVE (NEGATIVE); KETONES,URINE NEGATIVE (NEGATIVE); PROTEIN,URINE NEGATIVE (NEGATIVE); URINE SPECIFIC GRAVITY 1.021
[2019-03-15 11:17] LABS: URINE AMPHETAMINES SCREEN NEGATIVE; URINE BARBITURATES SCREEN NEGATIVE; URINE BENZODIAZEPINES SCREEN NEGATIVE; URINE COCAINE SCREEN NEGATIVE; URINE MARIJUANA (THC) SCREEN NEGATIVE; URINE METHADONE SCREEN NEGATIVE; URINE PHENCYCLIDINE SCREEN NEGATIVE
[2019-03-15 11:18] LABS: ALBUMIN 4.9 g/dL (3.5-5.0); ALKALINE PHOSPHATASE 82 U/L (38-126); ANION GAP 9 (5-19); ASPARTATE AMINO TRANSFERASE 22 U/L (17-59); BILIRUBIN,DIRECT 0.1 mg/dL (0.0-0.4); BILIRUBIN,TOTAL 0.7 mg/dL (0.2-1.3); BLOOD UREA NITROGEN 11 mg/dL (7-20); CALCIUM 9.9 mg/dL (8.4-10.2); CARBON DIOXIDE 28 mmol/L (22-30); CHLORIDE 104 mmol/L (98-107); GLUCOSE 86 mg/dL (75-110); POTASSIUM 4.6 mmol/L (3.6-5.0); TOTAL PROTEIN 7.7 g/dL (6.3-8.2)
--- NOTE | 2019-03-15 13:34 | ER Document Report ---
Doctor's Note Notes: 03/15/19 13:33 I signed up to see this patient on my shift on March 15. I was notified by nursing they had some concerns, psychosocial consult was being obtained. I did review nurse's notes and laboratory investigations. I noted that psychosocial consult had yet to happen, elected to see the patient following this. I was later notified by charge nurse that the patient was not present in the room. Phone calls were made, and the patient was found to be at home. I did not see, interview, nor examine the patient in any way, but I did review his labs and vital signs.
== END 2019-03-15 13:31 | disposition left against medical advice (07) ==
LOC: ER 09:48
DX: Z53.21 Procedure and treatment not carried out due to patient leaving prior to being seen by health care provider (principal); R53.1 Weakness; R53.83 Other fatigue; M25.512 Pain in left shoulder; Z87.891 Personal history of nicotine dependence
CPT/HCPCS: 36415; 80053; 80307; 81001; 83690; 85025; 86308

== ENCOUNTER 2019-06-16 15:09 | Emergency (ER) | payer MEDICAID ==
[2019-06-16] MEDS ORDERED: IBUPROFEN 800 MG TABLET PO ONE (16:02)
[2019-06-16] MEDS ORDERED: ONDANSETRON 4 MG TAB.RAPDIS PO ONE (16:02)
--- NOTE | 2019-06-16 16:05 | ER Document Report ---
ED Medical Screen (RME) - General Chief Complaint: Shoulder Pain Stated Complaint: SHOULDER PAIN Time Seen by Provider: 06/16/19 15:54 Primary Care Provider: HAILY LOMELI MD [Primary Care Provider] - Follow up as needed Mode of Arrival: Ambulatory Information source: Patient, Parent Notes: 18-year-old male presents emergency department with complaints of bilateral arm shoulder pain that started today. Reports severe pain. Reports some nausea. Reports he was playing basketball and both arms are really hurting. Denies falling or trauma. Patient is emotional crying. Has not taken anything for the pain. Mom is with him. She reports he rode his bike up here [place] after playing basketball. Denies fever vomiting diarrhea. Reports that it feels like his shoulders are dislocated. No history of dislocation. Reports he feels like he needs to have his stomach pumped because he has not a bowel movement in months. I have greeted and performed a rapid initial assessment of this patient. A comprehensive ED assessment and evaluation of the patient, analysis of test results and completion of the medical decision making process will be conducted by additional ED providers. TRAVEL OUTSIDE OF THE [place] IN LAST 30 DAYS: No - Related Data Allergies/Adverse Reactions: chlorpromazine [From Thorazine] Allergy (Verified 06/16/19 15:50) Past Medical History Renal/ Medical History: Denies: Hx Peritoneal Dialysis Psychiatric Medical History: Reports: Hx Depression - Immunizations Immunizations up to date: Yes Hx Diphtheria, Pertussis, Tetanus Vaccination: Yes Physical Exam - Vital signs Vitals: Pulse Resp BP Pulse Ox 99 14 139/81 H 96 06/16/19 15:14 06/16/19 15:14 06/16/19 15:14 06/16/19 15:14 Course - Vital Signs Vital signs: Temp Pulse Resp BP Pulse Ox 99 14 139/81 H 96 06/16/19 15:14 06/16/19 15:14 06/16/19 15:14 06/16/19 15:14 Doctor's Discharge - Discharge Referrals: HAILY LOMELI MD [Primary Care Provider] - Follow up as needed
[2019-06-16 16:41] LABS: ABSOLUTE BASOPHILS # (AUTO) 0.1 10^3/uL (0.0-0.2); ABSOLUTE LYMPHOCYTES (AUTO) 2.2 10^3/uL (0.5-4.7); ABSOLUTE MONOCYTES (AUTO) 0.6 10^3/uL (0.1-1.4); ABSOLUTE NEUT (AUTO) 5.1 10^3/uL (1.7-8.2); BASOPHILS % (AUTO) 0.7 % (0-2); EOSINOPHILS % (AUTO) 0.5 % (0-6); HEMATOCRIT 45.5 % (37.9-51.0); HEMOGLOBIN 15.6 g/dL (13.5-17.0); LYMPHOCYTES % (AUTO) 27.5 % (13-45); MEAN CORPUSCULAR HEMOGLOBIN 28.3 pg (27.0-33.4); MEAN CORPUSCULAR HGB CONC 34.4 g/dL (32.0-36.0); MEAN CORPUSCULAR VOLUME 82 fl (80-97); MONOCYTES % (AUTO) 7.7 % (3-13); PLATELET COUNT 246 10^3/uL (150-450); RED BLOOD COUNT 5.52 10^6/uL (4.35-5.55); RED CELL DISTRIBUTION WIDTH 13.1 % (11.5-14.0); SEGMENTED NEUTROPHILS % (AUTO) 63.6 % (42-78); TOTAL CELLS COUNTED % (AUTO) 100 %; WHITE BLOOD COUNT 8.1 10^3/uL (4.0-10.5)
[2019-06-16 16:50] LABS: ALKALINE PHOSPHATASE 86 U/L (38-126); ANION GAP 14 (5-19); ASPARTATE AMINO TRANSFERASE 30 U/L (17-59); BILIRUBIN,DIRECT 0.2 mg/dL (0.0-0.4); BLOOD UREA NITROGEN 15 mg/dL (7-20); CALCIUM 10.4 mg/dL (8.4-10.2); CARBON DIOXIDE 27 mmol/L (22-30); CHLORIDE 100 mmol/L (98-107); CREATINE KINASE 165 U/L (55-170); GLUCOSE 79 mg/dL (75-110); POTASSIUM 4.6 mmol/L (3.6-5.0); TOTAL PROTEIN 8.5 g/dL (6.3-8.2)
[2019-06-16 16:57] LABS: APPEARANCE,URINE CLEAR; BILIRUBIN,URINE NEGATIVE (NEGATIVE); COLOR,URINE YELLOW; GLUCOSE, URINE NEGATIVE (NEGATIVE); KETONES,URINE 20 mg/dL (NEGATIVE); LEUKOCYTE ESTERASE,URINE NEGATIVE (NEGATIVE); NITRITE,URINE NEGATIVE (NEGATIVE); PROTEIN,URINE NEGATIVE (NEGATIVE); URINE BARBITURATES SCREEN NEGATIVE; URINE BENZODIAZEPINES SCREEN NEGATIVE; URINE COCAINE SCREEN NEGATIVE; URINE METHADONE SCREEN NEGATIVE; URINE PHENCYCLIDINE SCREEN NEGATIVE; URINE SPECIFIC GRAVITY 1.021
[2019-06-16 17:02] LABS: URINE AMPHETAMINES SCREEN NEGATIVE
[2019-06-16 17:09] LABS: URINE MARIJUANA (THC) SCREEN UNCONFIRMED POSITIVE
--- NOTE | 2019-06-16 19:44 | ER Document Report ---
ED General - General Chief Complaint: Headache Stated Complaint: SHOULDER PAIN Time Seen by Provider: 06/16/19 15:54 Primary Care Provider: HAILY LOMELI MD [Primary Care Provider] - Follow up as needed Mode of Arrival: Ambulatory TRAVEL OUTSIDE OF THE [place] IN LAST 30 DAYS: No - HPI Notes: Patient is a 18-year-old male who presents emergency department for evaluation of left shoulder pain. He states that he was playing basketball with his godmother when he bumped his shoulder. He denies hitting his head. No neck or back pain. No loss of consciousness. No numbness or tingling. I asked him to point to where in his shoulder that it hurts, he states that the ibuprofen he was given has made it vague, and he cannot point to a specific area. He has no history of shoulder dislocations or significant injury to that area. - Related Data Allergies/Adverse Reactions: chlorpromazine [From Thorazine] Allergy (Verified 06/16/19 15:50) Home Medications: None Past Medical History - General Information source: Patient, Parent - Social History Smoking Status: Former Smoker Chew tobacco use (# tins/day): No Frequency of alcohol use: Rare Family History: Reviewed & Not Pertinent Patient has suicidal ideation: No Patient has homicidal ideation: No Renal/ Medical History: Denies: Hx Peritoneal Dialysis Psychiatric Medical History: Reports: Hx Depression - Immunizations Immunizations up to date: Yes Hx Diphtheria, Pertussis, Tetanus Vaccination: Yes Review of Systems - Review of Systems Constitutional: No symptoms reported EENT: No symptoms reported Cardiovascular: No symptoms reported Respiratory: No symptoms reported Gastrointestinal: No symptoms reported Musculoskeletal: See HPI Skin: No symptoms reported Neurological/Psychological: No symptoms reported Physical Exam - Vital signs Vitals: Pulse Resp BP Pulse Ox 99 14 139/81 H 96 06/16/19 15:14 06/16/19 15:14 06/16/19 15:14 06/16/19 15:14 - Notes Notes: Is a 18-year-old male who appears his stated age, in no acute distress. He is resting comfortably on the bed, in the dark. He is cooperative with examiner. Physical exam is limited the area of chief complaint. Examination left upper extremity is no obvious signs of trauma. No obvious deformity. Full range of the shoulder, elbow, wrist, fingers, thumb. Negative apprehension, negative Tabitha's test. Strength is plus 5 out of 5 at the shoulder, negative drop arm. Radial pulse 2+. Sensation intact, capillary refill is brisk. Course - Re-evaluation Re-evalutation: 06/16/19 19:41 Patient presents emergency department for evaluation. He was initially seen through triage. He had lab work and was given ibuprofen. Because of his complaint I did have a CPK added on, but after examining the patient I do not believe this is a rhabdo myolysis or other significant internal process. I suspect he simply has a contusion of his left shoulder. He has no signs of significant internal derangement. He is told to take Tylenol or ibuprofen as needed at home, follow-up with primary care, return to the ED with worsening. - Vital Signs Vital signs: Temp Pulse Resp BP Pulse Ox 99 14 139/81 H 96 06/16/19 15:14 06/16/19 15:14 06/16/19 15:14 06/16/19 15:14 - Laboratory Result Diagrams: 06/16/19 16:14 06/16/19 16:14 Laboratory results interpreted by me: 06/16/19 06/16/19 16:14 16:14 Calcium 10.4 H Total Protein 8.5 H Urine Ketones 20 H Urine Urobilinogen 2.0 H Discharge - Discharge Clinical Impression: Contusion of left shoulder Condition: Stable Disposition: HOME, SELF-CARE Instructions: Contusion ([facility]), Shoulder Injury ([facility]) Additional Instructions: No signs of significant fracture were found on your exam today. Rest. Ice to the area of pain persist, [id number] Tylenol or ibuprofen as needed/directed. Follow-up with primary care this week. Return to the ER with worsening or new concerning symptoms of any sort. Referrals: HAILY LOMELI MD [Primary Care Provider] - Follow up as needed
[2019-06-16 20:10] VITALS: BP 116/70
== END 2019-06-16 20:10 | disposition home or self-care (01) ==
LOC: ER 15:09
DX: S40.012A Contusion of left shoulder, initial encounter (principal); X58.XXXA Exposure to other specified factors, initial encounter; Y93.67 Activity, basketball; Z87.891 Personal history of nicotine dependence; Z88.8 Allergy status to other drugs, medicaments and biological substances
CPT/HCPCS: 99283; 36415; 82550; 85025; 80053; 81001; 80307; S0119

== ENCOUNTER 2019-06-16 21:33 | Emergency (ER) | payer SELFPAY ==
[2019-06-16] MEDS ORDERED: ACETAMINOPHEN 325 MG TABLET PO ONE (22:02)
--- NOTE | 2019-06-16 22:03 | ER Document Report ---
ED Medical Screen (RME) - General Chief Complaint: Headache Stated Complaint: HEADACHE/NAUSEA Time Seen by Provider: 06/16/19 22:00 Primary Care Provider: HAILY LOMELI MD [Primary Care Provider] - Follow up as needed Mode of Arrival: Ambulatory Information source: Patient Notes: Patient returns to the emergency department after having a visit done today with complaints that he went home and now has a headache. He did not take anything for his headache. Tylenol ordered I have greeted and performed a rapid initial assessment of this patient. A comprehensive ED assessment and evaluation of the patient, analysis of test results and completion of the medical decision making process will be conducted by additional ED providers. TRAVEL OUTSIDE OF THE [place] IN LAST 30 DAYS: No - Related Data Allergies/Adverse Reactions: chlorpromazine [From Thorazine] Allergy (Verified 06/16/19 21:59) Past Medical History Renal/ Medical History: Denies: Hx Peritoneal Dialysis Psychiatric Medical History: Reports: Hx Depression - Immunizations Immunizations up to date: Yes Hx Diphtheria, Pertussis, Tetanus Vaccination: Yes Physical Exam - Vital signs Vitals: Temp Pulse BP Pulse Ox 97.6 F 63 128/75 H 96 06/16/19 21:47 06/16/19 21:47 06/16/19 21:47 06/16/19 21:47 Course - Vital Signs Vital signs: Temp Pulse Resp BP Pulse Ox 97.6 F 63 128/75 H 96 06/16/19 21:47 06/16/19 21:47 06/16/19 21:47 06/16/19 21:47 Doctor's Discharge - Discharge Referrals: HAILY LOMELI MD [Primary Care Provider] - Follow up as needed
[2019-06-17] MEDS ORDERED: IBUPROFEN 600 MG TABLET PO ONE (01:04)
[2019-06-17 01:35] VITALS: BP 115/69
--- NOTE | 2019-06-17 05:40 | ER Document Report ---
Entered by ANN HUTSON SCRIBE 06/17/19 0104 Acting as scribe for:EULOGIO BENEDICT IV, MD ED Headache - General Chief Complaint: Headache Stated Complaint: HEADACHE/NAUSEA Time Seen by Provider: 06/16/19 22:00 Primary Care Provider: HAILY LOMELI MD [Primary Care Provider] - Follow up as needed Mode of Arrival: Ambulatory Information source: Patient Notes: This 18 year old male patient presents to the ED today with complaints of a headache and associated nausea that began after being discharged from here last night. Patient was seen here yesterday with complaints of left shoulder pain. Patient was discharged with a contusion to his left shoulder and orders to rest and take ibuprofen as needed. Patient states that after taking a nap after his first ED visit, he woke up with the headache. Patient states that he hasn't taken any ibuprofen. TRAVEL OUTSIDE OF THE [place] IN LAST 30 DAYS: No - Related Data Allergies/Adverse Reactions: chlorpromazine [From Thorazine] Allergy (Verified 06/16/19 21:59) Past Medical History - General Information source: Patient - Social History Smoking Status: Unknown if Ever Smoked Cigarette use (# per day): No Chew tobacco use (# tins/day): No Smoking Education Provided: No Family History: Reviewed & Not Pertinent Patient has suicidal ideation: No Patient has homicidal ideation: No Psychiatric Medical History: Reports: Hx Depression - Immunizations Immunizations up to date: Yes Hx Diphtheria, Pertussis, Tetanus Vaccination: Yes Review of Systems - Review of Systems Constitutional: No symptoms reported EENT: No symptoms reported Cardiovascular: No symptoms reported Respiratory: No symptoms reported Gastrointestinal: See HPI, Nausea Genitourinary: No symptoms reported Male Genitourinary: No symptoms reported Musculoskeletal: No symptoms reported Skin: No symptoms reported Hematologic/Lymphatic: No symptoms reported Neurological/Psychological: See HPI, Headaches -: Yes All other systems reviewed and negative Physical Exam - Vital signs Vitals: Temp Pulse BP Pulse Ox 97.6 F 63 128/75 H 96 06/16/19 21:47 06/16/19 21:47 06/16/19 21:47 06/16/19 21:47 - General General appearance: Alert - HEENT Head: Normocephalic, Atraumatic Eyes: Normal Pupils: PERRL - Respiratory Respiratory status: No respiratory distress Chest status: Nontender Breath sounds: Normal Chest palpation: Normal - Cardiovascular Rhythm: Regular Heart sounds: Normal auscultation Murmur: No - Abdominal Inspection: Normal Distension: No distension Bowel sounds: Normal Tenderness: Nontender Organomegaly: No organomegaly - Back Back: Normal, Nontender - Extremities General upper extremity: Normal inspection General lower extremity: Normal inspection - Neurological Neuro grossly intact: Yes - Psychological Associated symptoms: Normal affect, Normal mood - Skin Skin Temperature: Warm Skin Moisture: Dry Skin Color: Normal Course - Vital Signs Vital signs: Temp Pulse Resp BP Pulse Ox 97.5 F 71 16 115/69 100 06/17/19 01:34 06/17/19 01:34 06/17/19 01:34 06/17/19 01:34 06/17/19 01:34 Discharge - Discharge Clinical Impression: Stress Acute headache Qualifiers: Headache type: unspecified Intractability: not intractable Qualified Code(s): R51 - Headache Condition: Good Disposition: HOME, SELF-CARE Instructions: Headache ([facility]) Additional Instructions: Return to the Emergency Department without delay if any worse. Anxiety The physician feels that some of your health problems are being caused by anxiety. Anxiety affects your health in many ways. Anxiety alone can cause palpitations, sweats, chest pains, abdominal pains, shortness of breath, and headaches. It contributes to ulcer disease, high blood pressure, irritable bowel syndrome, and has been shown to cause flare-ups of many other diseases. Anxiety is not a simple disorder to treat. If the anxiety is due to recent life stresses, you may simply need time to "work through" the changes. If the anxiety is due to an underlying unhappiness with yourself or due to psychiatric disturbance, professional help will be needed. Your physician can refer you for further help if needed. Anti-anxiety medication is occasionally given if the stress is acute or if you are having trouble sleeping. Chronic or frequent use of these medications is not a good idea because the body becomes reliant on it, preventing you from dealing with life's normal stresses. HOME CARE INSTRUCTIONS & INFORMATION: Thank you for choosing us for your medical needs. We hope you're satisfied with the care you received. After you leave, you must properly care for your problem and, at the same time, observe its progress. Any condition can change. Some illnesses can change rapidly over hours or days. If your condition worsens, return to the Emergency Department or see your physician promptly. ABOUT YOUR X-RAYS AND EKG'S: If you had an EKG or X-rays taken, they have been read by the Emergency Physician. The X-rays and EKG's will also be read by a Radiologist or Damage Cutter within 24 hours. If discrepancies are noted, you will be notified by telephone. Please be certain the ED has a correct telephone number & address where you can be reached. Also, realize that some fractures or abnormalities do not show up on initial X-rays. If your symptoms continue, see your physician. ABOUT YOUR LABORATORY TEST: If you had laboratory tests, the results have been reviewed by the Emergency Physician. Some test results (for example cultures) may not be available for several days. You will be contacted if any test result shows you need additional treatment. Please be certain the ED has a correct telephone number and address where you can be reached. ABOUT YOUR MEDICATIONS: You will receive instructions on how to take your medicine on the prescription label you receive. Additional information may be provided by the Pharmacy. If you have questions afterwards, call the ED for clarification or further instructions. Some prescribed medications may cause drowsiness. Do not perform tasks such as driving a car or operating machinery without consulting your Pharmacist. If you feel you need a refill of pain medication, your condition will need re-evaluation. Please do not call for a refill of any medication. ABOUT YOUR SIGNATURE: Signature of this document acknowledges to followin. Understanding that you received emergency treatment and that you may be released before al medical problems are known or treated. Please be certain the ED has a correct phone number & address where you can be reached. 2. Acknowledgement that you will arrange for follow-up care as recommended. 3. Authorization for the Emergency Physician to provide information to your follow-up Physician in order to maximize your care. AT ANY TIME, IF YOUR SYMPTOMS CHANGE SIGNIFICANTLY OR WORSEN OR YOU DEVELOP NEW SYMPTOMS, RETURN TO THE EMERGENCY DEPARTMENT IMMEDIATELY FOR RE-EVALUATION. OUR GOAL IS TO PROVIDE EXCELLENT MEDICAL CARE! WE HOPE THAT WE HAVE MET YOUR EXPECTATIONS DURING YOUR EMERGENCY DEPARTMENT VISIT AND THAT YOU FEEL YOU HAVE RECEIVED EXCELLENT CARE! Referrals: HAILY LOMELI MD [Primary Care Provider] - Follow up as needed I personally performed the services described in the documentation, reviewed and edited the documentation which was dictated to the scribe in my presence, and it accurately records my words and actions.
== END 2019-06-17 01:37 | disposition home or self-care (01) ==
LOC: ER 21:33
DX: R51 Headache (principal); R11.0 Nausea; F43.9 Reaction to severe stress, unspecified; Z88.8 Allergy status to other drugs, medicaments and biological substances
CPT/HCPCS: 99283

== ENCOUNTER 2019-07-10 20:24 | Emergency (ER) | payer MEDICAID ==
[2019-07-10 20:40] VITALS: BP 138/96
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
--- NOTE | 2019-07-10 21:58 | RADIOLOGY REPORT (SQ) ---
EXAM DESCRIPTION: XR HAND 3 OR MORE VIEWS COMPLETED DATE/TME: 07/10/2019 21:06 CLINICAL HISTORY: 18 years, Male, punched wall COMPARISON: None. NUMBER OF VIEWS: TECHNIQUE: LIMITATIONS: None. FINDINGS: 3 views of the left hand were obtained. There is fracture involving the neck of the fifth metacarpal, with lateral and volar angulation. Mineralization of bone appears normal. IMPRESSION: Fracture of the fifth metacarpal. copyright 2010 [id number]- All Rights Reserved
[2019-07-10 22:59] LABS: APPEARANCE,URINE SLIGHTLY-CLOUDY; BILIRUBIN,URINE NEGATIVE (NEGATIVE); COLOR,URINE YELLOW; GLUCOSE, URINE NEGATIVE (NEGATIVE); KETONES,URINE TRACE mg/dL (NEGATIVE); LEUKOCYTE ESTERASE,URINE NEGATIVE (NEGATIVE); NITRITE,URINE NEGATIVE (NEGATIVE); PROTEIN,URINE NEGATIVE (NEGATIVE); URINE SPECIFIC GRAVITY 1.024
[2019-07-10 23:11] LABS: URINE AMPHETAMINES SCREEN NEGATIVE; URINE BARBITURATES SCREEN NEGATIVE; URINE BENZODIAZEPINES SCREEN NEGATIVE; URINE COCAINE SCREEN NEGATIVE; URINE MARIJUANA (THC) SCREEN NEGATIVE; URINE METHADONE SCREEN NEGATIVE; URINE PHENCYCLIDINE SCREEN NEGATIVE
[2019-07-11 00:22] LABS: CHLAM PCR NOT DETECTED (NOT DETECT)
== END 2019-07-11 04:22 | disposition left against medical advice (07) ==
LOC: ER 20:24
DX: S69.92XA Unspecified injury of left wrist, hand and finger(s), initial encounter (principal); W22.09XA Striking against other stationary object, initial encounter
CPT/HCPCS: 80307; 81001; 87491; 87591; 99281

== ENCOUNTER 2019-10-11 08:25 | Emergency (ER) | payer MEDICAID ==
[2019-10-11 08:33] VITALS: BP 113/66
--- NOTE | 2019-10-11 09:39 | ER Document Report ---
HPI - HPI Patient complains to provider of: Irritation to perineal area after applying lotion Time Seen by Provider: 10/11/19 09:34 Onset: Other Onset/Duration: Gradual - Tuesday or Tuesday Quality of pain: Other - Irritated Severity: None Pain Level: Denies Context: 18-year-old male presented to ED for some irritation to his testicles. He st ates after he he showered he shaved his clifford-area and then used a new lotion. He states the area was irritated after that and he was afraid he had a STD. He states he is sexually active but he has no drainage no redness no swelling no pain inside just on the skin of the testicles. There is no rash red bumps or irritation that is visible. Associated Symptoms: None Exacerbated by: Denies Relieved by: Denies Similar symptoms previously: No Recently seen / treated by doctor: No - ROS ROS below otherwise negative: Yes - CONSTITUTIONAL Constitutional: DENIES: Fever, Chills - EENT EENT: DENIES: Sore Throat, Ear Pain, Nasal Drainage-Clear, Nasal Drainage- Purulent, Congestion, Eye problems - NEURO Neurology: DENIES: Headache, Weakness, Vision blurred, Dizzinesss / Vertigo - CARDIOVASCULAR Cardiovascular: DENIES: Chest pain - RESPIRATORY Respiratory: DENIES: Trouble Breathing, Coughing - GASTROINTESTINAL Gastrointestinal: DENIES: Abdominal Pain, Nausea, Patient vomiting, Diarrhea, Constipation, Black / Bloody Stools - URINARY Urinary: DENIES: Dysuria, Urgency, Frequency - REPRODUCTIVE Reproductive: DENIES: : Notes: Irritation to the skin of the testicles after he shaved his perineum and then used a new lotion. There is no signs of any STD no signs of any infection very minimal irritation noted - MUSCULOSKELETAL Musculoskeletal: REPORTS: Extremity pain - DERM Skin Color: Normal Skin Problems: Rash - Minimal irritation to the testicles where he has shaved him and then use lotion no signs of infection Past Medical History - General Information source: Patient - Social History Smoking Status: Former Smoker Frequency of alcohol use: None Drug Abuse: None Lives with: Family Family History: Reviewed & Not Pertinent Patient has suicidal ideation: No Patient has homicidal ideation: No - Past Medical History Cardiac Medical History: Reports: None Pulmonary Medical History: Reports: None Renal/ Medical History: Denies: Hx Peritoneal Dialysis Psychiatric Medical History: Reports: Hx Depression - Immunizations Immunizations up to date: Yes Hx Diphtheria, Pertussis, Tetanus Vaccination: Yes Vertical Provider Document - CONSTITUTIONAL Agree With Documented VS: Yes Exam Limitations: No Limitations General Appearance: WD/WN, No Apparent Distress - INFECTION CONTROL TRAVEL OUTSIDE OF THE [place] IN LAST 30 DAYS: No - HEENT HEENT: Atraumatic, Normal ENT Exam, Normocephalic, PERRLA - NECK Neck: Normal Inspection, Supple - RESPIRATORY Respiratory: Breath Sounds Normal, No Respiratory Distress, Chest Non-Tender - CARDIOVASCULAR Cardiovascular: Regular Rate, Regular Rhythm, No Murmur - REPRODUCTIVE Notes: Mild irritation and erythema to the scrotum where he had shaved. No signs of any infection. - BACK Back: Normal Inspection, Abnormal Inspection - MUSCULOSKELETAL/EXTREMETIES Musculoskeletal/Extremeties: MAEW, FROM, Non-Tender - NEURO Level of Consciousness: Awake, Alert, Appropriate Motor/Sensory: No Motor Deficit, No Sensory Deficit, No Pronator Drift Deep Tendon Reflexes: 3+ - DERM Integumentary: Rash - Very fine rash to scrotum states he has been using a new cream after shaving Course - Vital Signs Vital signs: Temp Pulse Resp BP Pulse Ox 98.0 F 63 16 113/66 98 10/11/19 08:31 10/11/19 08:31 10/11/19 08:31 10/11/19 08:31 10/11/19 08:31 Discharge - Discharge Clinical Impression: Irritation to the skin of the testicles Condition: Stable Disposition: HOME, SELF-CARE Additional Instructions: You were seen today for irritation to the skin of your testicles. There is no signs of infection no signs of any STD. There are no vesicles. States he shaved this area and then used a new lotion. Please do not use that lotion again on this area. Acetaminophen Acetaminophen may be taken for pain relief or fever control. It's much safer than aspirin, offering a wider range of "safe" dosages. It is safe during . Some brand names are Tylenol, Panadol, Datril, Anacin 3, Tempra, and Liquiprin. Acetaminophen can be repeated every four hours. The following are maximum recommended dosages: WEIGHT Dose Drops Elixir Chewable(80mg) (LBS.) drprs=droppers tsp=teaspoon 6 40 mg .4 ml (1/2) 6-11 80 mg .8 ml (full) 1/2 tsp 1 tab 12-16 120 mg 1 1/2 drprs 3/4 tsp 1 1/2 tabs 17-23 160 mg 2 drprs 1 tsp 2 tabs 24-30 240 mg 3 drprs 1 1/2 tsp 3 tabs 30-35 320 mg 2 tsp 4 tabs 36-41 360 mg 2 1/4 tsp 4 1/2 tabs 42-47 400 mg 2 1/2 tsp 5 tabs 48-53 480 mg 3 tsp 6 tabs 54-59 520 mg 3 1/4 tsp 6 1/2 tabs 60-64 560 mg 3 1/2 tsp 7 tabs 65-70 600 mg 3 3/4 tsp 7 1/2 tabs 71-76 640 mg 4 tsp 8 tabs 77-82 720 mg 4 1/2 tsp 9 tabs 83-88 800 mg 5 tsp 10 tabs >89 pounds or adults 650 mg to 900 mg Acetaminophen can be repeated every four hours. Maximum daily dose not to exceed 4000 mg. These maximum recommended dosages are slightly higher than the dosages written on the product container, but these dosages are very safe and well below the toxic dosage for acetaminophen. Ibuprofen Ibuprofen is an excellent, safe drug for pain control. In addition, it has potent antiinflammatory effects which are beneficial, especially in the treatment of injuries, arthritis, or tendonitis. It's best to take ibuprofen with food. Persons with ulcer disease or allergy to aspirin should notify their physician of this before taking ibuprofen. Take the medication exactly as prescribed. Don't take additional doses unless instructed to do so by your doctor. If you develop wheezing, shortness of breath, hives, faintness, stomach pain, vomiting, or dark black stools, return for re-evaluation at once. Antibiotic Ointment Protection Your wounds are such that dressing them is not practical or optional. After cleansing, you should apply a thin coating of antibiotic ointment (Bacitracin, not Neosporin) to the wounds at least three times daily. This lessens infection risk, and may decrease the amount of scarring. Use a q-tip or dull butter knife, not your finger, to apply this ointment. Any debris or ooze which builds up in the ointment should be gently rubbed off with a sterile gauze pad. Harder crusting may need to be gently scrubbed off with a clean wash cloth with soap and warm water, perhaps applying a warm, wet wash cloth to the wound for ten minutes first. Development of redness, severe itching, or blistering may mean allergy to the ointment. See the doctor. FOLLOW-UP CARE: If you have been referred to a physician for follow-up care, call the physicians office for an appointment as you were instructed or within the next two days. If you experience worsening or a significant change in your symptoms, notify the physician immediately or return to the Emergency Department at any time for re-evaluation. Referrals: [facility] [Provider Group] - Follow up as needed [facility] [Provider Group] - Follow up as needed [facility] [Provider Group] - Follow up as needed
== END 2019-10-11 09:59 | disposition home or self-care (01) ==
LOC: ER 08:25
DX: R21 Rash and other nonspecific skin eruption (principal); Z87.891 Personal history of nicotine dependence
CPT/HCPCS: 99283

== ENCOUNTER 2019-11-06 21:05 | Emergency (ER) | payer MEDICAID ==
--- NOTE | 2019-11-06 21:40 | ER Document Report ---
ED General - General Chief Complaint: Psych Problem Stated Complaint: DIZZINESS Time Seen by Provider: 11/06/19 21:31 Mode of Arrival: Medic Information source: Patient TRAVEL OUTSIDE OF THE [place] IN LAST 30 DAYS: No - HPI Onset: Other - over the last several days Onset/Duration: Gradual Quality of pain: No pain Severity: Moderate Associated symptoms: Other - Depression, Suicidal Exacerbated by: Denies Relieved by: Denies Similar symptoms previously: Yes Recently seen / treated by doctor: No Notes: 19 year old male with a history of prior psych hospitalizations here in the ER for depression and suicidal ideation in the setting of smoking marijuana. The patient denies having a plan to kill himself but he has cut himself in the past (he has no new cut latham). The patient denies homicidal ideation. The patient tells me he lives with his parents. The patient apparently called EMS several times today and was tearful and expressing severe depressive thoughts on their arrival. - Related Data Allergies/Adverse Reactions: chlorpromazine [From Thorazine] Allergy (Verified 06/16/19 21:59) Home Medications: albuterol Past Medical History - General Information source: Patient - Social History Smoking Status: Never Smoker Chew tobacco use (# tins/day): No Frequency of alcohol use: Occasional Drug Abuse: Marijuana Lives with: Family Family History: Reviewed & Not Pertinent Patient has suicidal ideation: Yes Patient has homicidal ideation: No Renal/ Medical History: Denies: Hx Peritoneal Dialysis Psychiatric Medical History: Reports: Hx Depression - Immunizations Immunizations up to date: Yes Hx Diphtheria, Pertussis, Tetanus Vaccination: Yes Review of Systems - Review of Systems Constitutional: No symptoms reported EENT: No symptoms reported Cardiovascular: No symptoms reported Respiratory: No symptoms reported Gastrointestinal: No symptoms reported Genitourinary: No symptoms reported Male Genitourinary: No symptoms reported Musculoskeletal: No symptoms reported Skin: No symptoms reported Hematologic/Lymphatic: No symptoms reported Neurological/Psychological: Depression, Suicidal ideation -: Yes All other systems reviewed and negative Physical Exam - Vital signs Vitals: Temp 98.3 F 11/06/19 21:14 - Notes Notes: GENERAL: Well-appearing, well-nourished and in no acute distress. HEAD: Atraumatic, normocephalic. EYES: Pupils equal round and reactive to light, extraocular movements intact, sclera anicteric, conjunctiva are normal. ENT: External ears normal, nares patent, oropharynx clear without exudates. Moist mucous membranes. NECK: Normal range of motion, supple without lymphadenopathy or JVD. LUNGS: Breath sounds clear to auscultation bilaterally and equal. No wheezes rales or rhonchi. HEART: Regular rate and rhythm without murmurs, rubs or gallops. ABDOMEN: Soft, nontender, normoactive bowel sounds. No guarding, no rebound. No masses appreciated. EXTREMITIES: Normal range of motion, no pitting or edema. No clubbing or cyanosis. NEUROLOGICAL: Cranial nerves II through XII grossly intact. Normal speech, normal gait. PSYCH: Suicidal ideation. Normal mood, normal affect. SKIN: Warm, Dry, normal turgor, no rashes or lesions noted. Old cut latham on arms. Course - Re-evaluation Re-evalutation: 11/07/19 04:52 The patient is medically cleared and awaiting psych disposition. The patient was brought to the ER by EMS for thoughts of SI without a plan and Depression. The patient says she has been smoking marijuana but his drug screen was negative. Patient has smoked K2 (synthetic marijuana) in the past so this is a possibility. Patient was put on a 24 hold until he could be evaluated by psych. - Vital Signs Vital signs: Temp Pulse Resp BP Pulse Ox 97.9 F 70 16 141/70 H 99 11/06/19 23:40 11/06/19 23:40 11/06/19 23:40 11/06/19 23:40 11/06/19 23:40 - Laboratory Result Diagrams: 11/06/19 21:45 11/06/19 21:45 Laboratory results interpreted by me: 11/06/19 11/06/19 11/06/19 21:45 21:45 22:50 Seg Neutrophils % 79.7 H Chloride 108 H Urine Ascorbic Acid 20 H Salicylates < 1.0 L Acetaminophen < 10 L - EKG Interpretation by Al EKG shows normal: Sinus rhythm, [place], Intervals, QRS Complexes, ST-T Waves Rate: Normal Rhythm: NSR Discharge - Discharge Clinical Impression: Substance abuse Depression Qualifiers: Depression Type: unspecified Qualified Code(s): F32.9 - Major depressive disorder, single episode, unspecified Condition: Stable Disposition: OTHER Instructions: Depression ([facility])
[2019-11-06 22:00] LABS: ABSOLUTE BASOPHILS # (AUTO) 0.1 10^3/uL (0.0-0.2); ABSOLUTE LYMPHOCYTES (AUTO) 1.2 10^3/uL (0.5-4.7); ABSOLUTE MONOCYTES (AUTO) 0.4 10^3/uL (0.1-1.4); ABSOLUTE NEUT (AUTO) 6.4 10^3/uL (1.7-8.2); BASOPHILS % (AUTO) 0.6 % (0-2); EOSINOPHILS % (AUTO) 0.2 % (0-6); HEMATOCRIT 42.5 % (37.9-51.0); HEMOGLOBIN 14.6 g/dL (13.5-17.0); LYMPHOCYTES % (AUTO) 14.6 % (13-45); MEAN CORPUSCULAR HEMOGLOBIN 28.7 pg (27.0-33.4); MEAN CORPUSCULAR HGB CONC 34.4 g/dL (32.0-36.0); MEAN CORPUSCULAR VOLUME 84 fl (80-97); MONOCYTES % (AUTO) 4.9 % (3-13); PLATELET COUNT 210 10^3/uL (150-450); RED BLOOD COUNT 5.09 10^6/uL (4.35-5.55); RED CELL DISTRIBUTION WIDTH 13.1 % (11.5-14.0); SEGMENTED NEUTROPHILS % (AUTO) 79.7 % (42-78); TOTAL CELLS COUNTED % (AUTO) 100 %
[2019-11-06 22:20] LABS: ALBUMIN 4.9 g/dL (3.5-5.0); ALKALINE PHOSPHATASE 76 U/L (38-126); ANION GAP 8 (5-19); ASPARTATE AMINO TRANSFERASE 22 U/L (17-59); BILIRUBIN,TOTAL 0.5 mg/dL (0.2-1.3); BLOOD UREA NITROGEN 12 mg/dL (7-20); CALCIUM 9.8 mg/dL (8.4-10.2); CARBON DIOXIDE 26 mmol/L (22-30); CHLORIDE 108 mmol/L (98-107); GLUCOSE 92 mg/dL (75-110); POTASSIUM 4.2 mmol/L (3.6-5.0); TOTAL PROTEIN 7.8 g/dL (6.3-8.2)
[2019-11-06 22:22] LABS: ACETAMINOPHEN < 10 ug/mL (10-30); ALCOHOL < 10 mg/dL (NONE DETECTED); SALICYLATE < 1.0 mg/dL (2.0-20.0)
[2019-11-06 23:06] LABS: APPEARANCE,URINE CLEAR; BILIRUBIN,URINE NEGATIVE (NEGATIVE); COLOR,URINE STRAW; GLUCOSE, URINE NEGATIVE (NEGATIVE); KETONES,URINE NEGATIVE (NEGATIVE); LEUKOCYTE ESTERASE,URINE NEGATIVE (NEGATIVE); NITRITE,URINE NEGATIVE (NEGATIVE); PROTEIN,URINE NEGATIVE (NEGATIVE); URINE SPECIFIC GRAVITY 1.011; UROBILINOGEN,URINE NEGATIVE mg/dL (<2.0)
[2019-11-06 23:21] LABS: URINE AMPHETAMINES SCREEN NEGATIVE; URINE BARBITURATES SCREEN NEGATIVE; URINE BENZODIAZEPINES SCREEN NEGATIVE; URINE COCAINE SCREEN NEGATIVE; URINE MARIJUANA (THC) SCREEN NEGATIVE; URINE METHADONE SCREEN NEGATIVE; URINE PHENCYCLIDINE SCREEN NEGATIVE
[2019-11-06] MEDS ORDERED: ACETAMINOPHEN 325 MG TABLET PO ONE (23:52)
[2019-11-07] MEDS ORDERED: DIPHENHYDRAMINE HCL 50 MG CAPSULE PO ONE (00:58)
[2019-11-07] MEDS ORDERED: ACETAMINOPHEN 325 MG TABLET PO ONE (08:12)
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
--- NOTE | 2019-11-07 13:10 | EKG REPORT ---
SEVERITY:- NORMAL ECG - SINUS RHYTHM : Confirmed by: She George 07-Nov-2019 13:09:21
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
[2019-11-07] MEDS ORDERED: ZIPRASIDONE HCL 20 MG CAPSULE PO ONE (14:02)
[2019-11-07] MEDS ORDERED: BENZTROPINE MESYLATE 1 MG TABLET PO ONE (14:02)
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
[2019-11-08] MEDS ORDERED: BENZTROPINE MESYLATE 1 MG TABLET PO ONE (16:59)
[2019-11-08] MEDS ORDERED: ZIPRASIDONE HCL 20 MG CAPSULE PO ONE (16:59)
--- NOTE | 2019-11-09 10:00 | PSYCHOLOGICAL NOTE ---
Psych Note - Psych Note Date seen by psych provider: 11/08/19 Time seen by psych provider: 16:47 - [id number]. Conversation with mother about plan of care around 1999. Psych Note: Presenting Problem: Patient is a 19 year old male who presented to the [facility] ED the evening of 11/06/2019 via EMS after he called them initially saying he smoked marijuana and felt dizzy/nauseous. EMS went to location patient called from but he was not there and had walked 1.[address]. When EMS located him he said "I just can't do this anymore" and stated "I'm ready to go." Medical documentation noted old cut latham to arms and patient reported history of cutting. He was tearful, told medical he felt like he had a black cloud over him and kept seeing his father (who is alive). Medical documentation noted patient acting strange with flat affect. He told medical staff he was unable to describe what he was feeling, his entire body hurt and when provided with sandwich/crackers he did not eat. He kept complaining of a headache and did get Tylenol, then this AM asked for something stronger. Medical documentation identified patient had gone to the bathroom last evening, was taking along time, so medical went to check in and he was sitting on the shower step, said he forgot what he was doing and had urinated all over the toilet seat and floor. Then he went back to his room where he stood by his bed gazing around the room. Then he kneeled on the floor and prayed. UDS was negative for all substances tested. Patient Is a FULL IVC. Patient presented today with psychomotor agitation (up standing, walking, would barely sit or lay in bed), somewhat pressured speech, and still a bit disorganized. He was able to have more dialogue conversation and with this clinician directing discussions he could stay on topic. He was adamant he thought he got marijuana the other night and commented not knowing the darlin. Psychoeducated patient on cannabis being laced or sprayed with things like Embalming fluid and how the effects cause psychosis. He denied Spice use adamantly. Patient identified the night of his crisis he had hung out with some friends driving around, they went off to do their thing so he had them drop him off at an old [place] in [place] where he used to live for many years. He noted "I just feel safe there." He stated that is when he started feeling bad and thought it was due to the marijuana so called EMS. He stated he walked down the road to his friend's house (used her phone the second time) after the initial phone call because the lady made him feel weird. He admitted he did not like the ACTT team, he thought he would get counseling but it was more about medication and physicals. Psychoeducated patient about ACTT and how they do home visits but their goal is maintain medication management and involvement in the community. He stated "nobody even told me what the Trazodone is for." Psychoeducated him on Trazodone being an antidepressant often used for sleep. Also informed him after this month he will not have access to it from Dr. Plummer because the ACTT team has discharged him from their program due to lack of engagement and inability to conduct full assessment. He talked about his moods and said "you don't think it's just mood swings." Explained he has been having issues for at least the past 2 years so at this point it seems there is more going on. When this clinician mentioned it sounds he has been hard on himself in terms of knowing what he is doing with his life he got quiet and hung head down. He stated "I gotta live day by day." He asked for something he could use to play with and keep hands busy, nurse made aware. Attending ED Nurse noted patient being happy and animated to like a blank stare. She also said patient would say off the wall comments that did not make sense to her. She reported at one point he jumped on the counter in his room. Collateral: Around 1999 patient's mother called and spoke to this clinician. She has called in several times and has talked with patient. She was made aware of plan of care which includes Full IVC, administered Geodon and Cogentin Intramuscular yesterday and by mouth today, placement efforts and [facility] denying him. She stated he has mood swings typically going from depressed and angry. She was informed there is likely a mood disorder. She stated nobody has ever done testing. Psychoeducated mother about diagnosing (yes there are screening questions that are based on a Juan Carlos of criteria and so many have to be met. She reported there is paternal (father is not in the picture, mother remarried so that is step father) family history with a grandfather having some sort of mental health. Clinical Presentation: Altered Mental Status Suicidal Ideation Diagnosis: Spice Use Disorder Severe (said he thought he used marijuana, 3 visits February 2018 for Spice use which resulted in odd behavior and/or aggression) Depression by history per mother R/O Bipolar Disorder Medication recommendations made by the psychiatric medication provider Dr. Jemal HOFF., includes: Add Geodon 20MG Intramuscular or By Mouth once now for psychosis Add Cogentin 1MG Intramuscular or By Mouth once now to curb tremor side effects often associated with antispychotic medications Impression/Plan: Recommendation to maintain FULL IVC. Patient continued to present with tracy (pressured speech, psychomotor agitation, some disorganization but better able to carry on dialogue conversation). Consulted with Dr. Delarosa regarding the management and care of patient. ED Physician in agreement with recommendations.
--- NOTE | 2019-11-09 11:19 | ER Document Report ---
Doctor's Note Notes: 11/09/19 11:18 Full physical exam could not be performed due to covid 19 isolation protocols. Constitutional: Nontoxic appearance, no acute distress Eyes: Nonicteric, extraocular movements intact, sclera clear Cardiovascular: No JVD Respiratory: Nonlabored breathing, no use of accessory muscles, no tachypnea Gastrointestinal: Abdomen not distended Muculoskeletal: Moves all extremities well Skin: Normal color Neuro: Awake alert oriented, normal speech Psych: Normal mood, cooperative with staff Patient has been accepted to [facility] and is awaiting transport at this time. Patient medically clear for transfer.
[2019-11-09 11:45] VITALS: BP 120/63
== END 2019-11-09 11:42 | disposition other institution (70) ==
LOC: ER 21:05
DX: F32.9 Major depressive disorder, single episode, unspecified (principal); R45.851 Suicidal ideations; F12.10 Cannabis abuse, uncomplicated; R45.6 Violent behavior; Z78.1 Physical restraint status; Z75.1 Person awaiting admission to adequate facility elsewhere; Z91.5 Personal history of self-harm; Z79.899 Other long term (current) drug therapy; Z88.8 Allergy status to other drugs, medicaments and biological substances
CPT/HCPCS: 93005; 99285; 36415; 80307 ×4; 85025; 80053; 81001; 93010; J3490 ×4